=== PATIENT | female | born 1955 | race American Indian/Alaskan Native ===

== ENCOUNTER 2023-10-29 08:06 | Inpatient (IN) | payer BC, MEDICARE ==
[2023-10-29] MEDS ORDERED: Naloxone 0.4 MG/ML SDV IVPUSH PRN (09:01)
[2023-10-29] MEDS ORDERED: Flumazenil 0.1 MG/ML 5 ML MDV IVPUSH PRN (09:01)
[2023-10-29 09:40] LABS: PROTHROMBIN TIME 9.9 sec (9.2-10.6); PTT,PARTIAL THROMBOPLSTIN TIME 25.5 sec (21.8-27.3)
[2023-10-29] MEDS: Sodium Chloride 0.9% 1,000 ML IV SCH (10:28)
[2023-10-29] MEDS: Lidocaine 1% 10 ML MDV INJECT ONE ×2 (10:32→16:34)
[2023-10-29] MEDS: fentaNYL 100 MCG/2 ML SDV IVPUSH ONE ×2 (10:54→15:33)
[2023-10-29] MEDS: Midazolam 1 MG/ML 5 ML SDV IVPUSH ONE (10:55)
[2023-10-29] MEDS: Midazolam 1 MG/ML 2 ML SDV IVPUSH ONE (15:33)
[2023-10-29] MEDS: Lidocaine 1% 20 ML MDV INJECT ONE (16:33)
[2023-10-29] MEDS ORDERED: Ondansetron 4 MG Tab.DIS PO PRN (16:40)
[2023-10-29] MEDS ORDERED: Zolpidem 5 MG Tab PO PRN (16:40)
[2023-10-29] MEDS ORDERED: Ketorolac 30 MG/ML SDV IM PRN (16:40)
[2023-10-29] MEDS ORDERED: Albuterol/Ipratropium 3.0-0.5 MG/3 ML Neb Soln SCH (16:45)
[2023-10-29] MEDS: HYDROmorphone 1 MG/ML Syringe IVPUSH PRN (17:10)
[2023-10-29 17:43] LABS: CALCIUM 9.8 mg/dL (8.5-10.1); CREATININE 0.8 mg/dL (0.6-1.0); EST CRCL DRUG DOSING (CG) 52.73 mL/min; POTASSIUM,K 4.5 mmol/L (3.6-5.2)
[2023-10-29] MEDS: Acetaminophen/oxyCODONE 325-5 MG Tab PO PRN (17:43)
[2023-10-29 17:44] LABS: ANION GAP 10.5 mmol/L (5.0-14.0)
[2023-10-29] MEDS: Formoterol/Mometasone 200-5 MCG 8.8 GM Inhaler IH SCH (20:50)
[2023-10-29] MEDS ORDERED: Non-Formulary Medication 1 Each (Fluticasone/Salmeterol [Advair 500-50] 14 PUFF/DISKUS Dis INH SCH (21:00)
[2023-10-30] MEDS: Levothyroxine 25 MCG Tab PO SCH (07:18)
[2023-10-30] MEDS ORDERED: Non-Formulary Medication 1 Each (Levothyroxine [Levothyroxine] 75 MCG Tablet) PO SCH (07:30)
[2023-10-30] MEDS: hydrOXYzine HCl 25 MG Tab PO PRN (14:33)
[2023-10-30] MEDS: Albuterol/Ipratropium 3.0-0.5 MG/3 ML Neb Soln NEB SCH (21:07)
[2023-10-31] MEDS: Albuterol/Ipratropium 3.0-0.5 MG/3 ML Neb Soln NEB SCH (21:06)
[2023-11-01] MEDS: Sennosides/Docusate Sodium 50-8.6 MG Tab PO PRN (09:17)
[2023-11-02] MEDS ORDERED: Flumazenil 0.1 MG/ML 5 ML MDV IVPUSH PRN (13:33)
[2023-11-02] MEDS ORDERED: Naloxone 0.4 MG/ML SDV IVPUSH PRN (13:33)
[2023-11-02] MEDS: Sodium Chloride 0.9% 1,000 ML IV SCH (13:45)
[2023-11-02] MEDS: fentaNYL 100 MCG/2 ML SDV IVPUSH ONE (14:22)
[2023-11-02] MEDS: Midazolam 1 MG/ML 5 ML SDV IVPUSH ONE (14:22)
[2023-11-02] MEDS: Codeine/guaiFENesin 10-100 MG/5 ML Syrup 5 ML Cup PO SCH (14:55)
[2023-11-02] MEDS: Non-Formulary Medication 1 Each (Tiotropium [Spiriva Handihaler] 18 MCG Cap) INH SCH (15:23)
[2023-11-02] MEDS: Lidocaine 1% 10 ML MDV INJECT ONE (15:24)
[2023-11-02] MEDS: Lidocaine 1% 20 ML MDV INJECT ONE (17:00)
[2023-11-02] MEDS ORDERED: Propofol 200 MG/20 ML SDV ONE (18:41)
[2023-11-02] MEDS: Acetaminophen 325 MG Tab PO PRN (20:02)
[2023-11-02] MEDS: Ketorolac 15 MG/ML SDV IVPUSH PRN (23:43)
[2023-11-03] MEDS: tiZANidine 2 MG Tab PO PRN (09:55)
[2023-11-05] MEDS: Benzonatate 100 MG Cap PO PRN (10:49)
[2023-11-05] MEDS: Codeine/guaiFENesin 10-100 MG/5 ML Syrup 5 ML Cup PO PRN (19:54)
[2023-11-06] MEDS: Sodium Chloride 0.9% 1,000 ML IV SCH (22:15)
[2023-11-07 10:11] VITALS: BP 115/66; PULSE 74
== END 2023-11-07 11:03 | DRG 200 ==
LOC: JP.ACU 08:06 → JP.MS 16:40
PROVIDERS: ADMIT Internal Medicine; ATTEND Hospitalist
PROC: 0W9930Z Drainage of Right Pleural Cavity with Drainage Device, Percutaneous Approach (ICD-10-PCS; principal; 2023-10-29)
PROC: 0WP9X0Z Removal of Drainage Device from Right Pleural Cavity, External Approach (ICD-10-PCS; 2023-11-02)
PROC: 0W9930Z Drainage of Right Pleural Cavity with Drainage Device, Percutaneous Approach (ICD-10-PCS; 2023-11-02)
DX: J95.811 Postprocedural pneumothorax (principal); C34.91 Malignant neoplasm of unspecified part of right bronchus or lung; I25.10 Atherosclerotic heart disease of native coronary artery without angina pectoris; F17.200 Nicotine dependence, unspecified, uncomplicated; J43.2 Centrilobular emphysema; F32.A Depression, unspecified; Z99.81 Dependence on supplemental oxygen; Z79.899 Other long term (current) drug therapy; Z79.51 Long term (current) use of inhaled steroids; Z87.81 Personal history of (healed) traumatic fracture; Z90.49 Acquired absence of other specified parts of digestive tract; Z90.710 Acquired absence of both cervix and uterus; Z98.890 Other specified postprocedural states
CPT/HCPCS: 00520-QZ; 32400; 32400-RT; 32557; 32557-26; 36415; 71045; 71045-26; 71046; 71046-26; 71250; 71250-26; 77012; 77012-26; 80048; 85610; 85730; 88305; 88341; 88342; 94640; 99222; 99232; 99238; A9270-GY; C1729; C1769; J1170; J1885; J2250; J2704; J3010; J7030; J7620